=== PATIENT | female | born 2000 | race Caucasian/White ===

== ENCOUNTER → 2020-01-11 09:51 | Outpatient (CLI) | payer BC, SELFPAY ==
[2016-06-28 09:42] VITALS: BMI 25.7
[2020-01-11 12:15] LABS: HIV - WCH Non-Reactive (Nonreactive); Hepatitis B Surface Antigen Non-Reactive (Nonreactive); Hepatitis C Antibody Non-Reactive (Nonreactive)
[2020-01-14 02:11] LABS: Rapid Plasmin Reagin (RPR) NONREACTIVE (NONREACTIVE)
== END ==
PROVIDERS: PCP Pediatrics; Visit Provider Student in an Organized Health Care Education/Training Program
DX: Z11.3 Encounter for screening for infections with a predominantly sexual mode of transmission (principal)
CPT/HCPCS: 36415; 86592; 86703; 86803; 87340; 87491; 87591

== ENCOUNTER 2020-04-19 14:02 | Emergency (ER) | payer BC, MEDICAID, SELFPAY ==
[2020-04-19 14:03] VITALS: BP 116/86; PULSE 79; RESP 15; TEMP 36.7; O2SAT 99; BMI 30.5
--- NOTE | 2020-04-19 14:23 | ED.DCSUM_ITS ---
- ER Visit Summary Date of Service: 04/19/20 Chief Complaint: [Swelling to left labia majora] History of Present Illness: The patient is a 20 F [presents to the emergency department with complaint of of a swollen area to her left labia which she thought might be an ingrown hair. Patient states that she has a history of MRSA. Patient states that while in the shower last evening she had to remove the top layer of skin in the wound seemed to drain and has decreased in size since that time. Patient states that her boyfriend has had history of MRSA and she wanted to see if this was MRSA although she does have a history of MRSA. Patient denies any fevers or chills or sweats. Otherwise has no medical history. She is not diabetic.] Physical Examination: [HEENT-PERRLA, EOMI. Cranial nerves II through XII grossly intact. TMs clear. Mucous membranes moist. No adenopathy. Cardiovascular-regular rate and rhythm without murmur or ectopy Lungs-clear to auscultation, chest wall stable without crepitus or subcu emphysema Abdomen-normoactive bowel sounds, soft, nontender, no rebound or rigidity, no peritoneal signs. exam-patient does have a small papule measuring approximately 1 cm in diameter over the labia majora on the left. There is no fluctuance. No obvious drainage at this time. There is minimal surrounding erythema. Extremities-intact ?4, normal range of motion, normal pulses, atraumatic] Test Results: [None indicated] Emergency Department Course and Treatment: [Patient was started on Keflex and Bactrim] Treatment Plan: [Patient advised to follow-up with primary care physician in 3 to 5 days. Patient to return if increasing pain, redness, swelling, purulent drainage, or condition should worsen anyway. At this point I do not feel there is an indication for incision and drainage as patient states it has already drained and there is no fluctuance at this time..] Disposition: [Discharged home in stable condition] Impression: [Soft tissue abscess left labia majora-antibiotic treatment] This note was generated with [employer] software. It may contain incorrect words, spelling, and punctuation that were not noted in review of the chart prior to signing ED Disposition - Plan for ED Patient: Referrals: Mil Alfaro MD [Primary Care Provider] -
--- NOTE | 2020-04-19 14:25 | ED.DEP ---
ED Disposition - Plan for ED Patient: Instructions: ED Abscess Antibiotic Treatment Only Prescriptions: Smz/Tmp Ds [Bactrim Ds] 1 tab PO BID #14 tab Prescription Printed Cephalexin [Keflex] 500 mg PO Q6 #40 cap Prescription Printed Referrals: Mil Alfaro MD [Primary Care Provider] - 3-5 Days
[2020-04-19] MEDS: Smz/Tmp Ds Tablet 1 TABLET PO (14:40)
[2020-04-19] MEDS: Cephalexin 250 MG Capsule 500 MG PO (14:41)
== END 2020-04-19 14:47 | disposition home or self-care (01) ==
LOC: ED 14:33
PROVIDERS: Emergency Provider Emergency Medicine; PCP Pediatrics
DX: N76.4 Abscess of vulva (principal); F17.200 Nicotine dependence, unspecified, uncomplicated
CPT/HCPCS: 99283

== ENCOUNTER → 2020-04-21 16:45 | Outpatient (CLI) | payer BC, MEDICAID, SELFPAY ==
[2020-04-19 14:03] VITALS: BMI 30.5
[2020-04-26 04:08] LABS: Chlamydia By Nucleic Acid AMP Positive (Negative)
[2020-04-26 07:41] LABS: Gonococcus By Nucleic Acid AMP Negative (Negative)
== END ==
PROVIDERS: PCP Pediatrics; Visit Provider Student in an Organized Health Care Education/Training Program
DX: Z11.3 Encounter for screening for infections with a predominantly sexual mode of transmission (principal)
CPT/HCPCS: 87491; 87591

== ENCOUNTER → 2020-08-30 16:00 | Outpatient (CLI) | payer BC, MEDICAID, SELFPAY ==
[2020-09-01 20:08] LABS: Chlamydia By Nucleic Acid AMP Negative (Negative)
[2020-09-01 22:45] LABS: Gonococcus By Nucleic Acid AMP Negative (Negative)
== END ==
PROVIDERS: PCP Pediatrics; Visit Provider Student in an Organized Health Care Education/Training Program
DX: A56.00 Chlamydial infection of lower genitourinary tract, unspecified (principal); Z11.3 Encounter for screening for infections with a predominantly sexual mode of transmission
CPT/HCPCS: 87491; 87591

== ENCOUNTER → 2020-12-27 09:47 | Outpatient (CLI) | payer BC, MEDICAID, SELFPAY | PROVIDERS: PCP Pediatrics; Visit Provider Student in an Organized Health Care Education/Training Program | DX: Z11.3 Encounter for screening for infections with a predominantly sexual mode of transmission (principal) ==

== ENCOUNTER 2021-06-16 10:50 | Outpatient (CLI) | payer BC, MEDICAID, SELFPAY ==
[2021-06-16 11:47] LABS: Absolute Lymphocyte Count 3.04 X10^3/uL (0.83-4.51); Absolute Neutrophil Count 6.6 X10^3/uL (2.0-7.7); Basophil# 0.05 X10^3/uL; Basophil% 0.5 % (0-1); Eosinophil# 0.25 X10^3/uL; Eosinophils% 2.3 % (0-5); Hemoglobin 12.9 g/dL (12.0-15.0); Lymphocyte # 3.04 X10^3/ul (0.83-4.51); Lymphocyte % 28.3 % (19-41); Mean Corp Hgb Conc 33.1 g/dL (32-36); Mean Corpuscular Hgb 27.4 pg (27.0-32.0); Mean Corpuscular Volume 82.8 fL (81-99); Mean Platelet Vol. 9.5 fl (6.2-12.0); Monocyte% 6.5 % (0-10); NRBC Flagged by Analyzer 0 % (0-5); Neutrophil # 6.64 X10^3/uL (2.7-7.7); Neutrophil % 61.9 % (47-70); Platelet Count 435 K/mm3 (150-450); RBC Distribution Width CV 14.1 % (11.6-14.6); RBC Distribution Width SD 42.5 fl (35.1-43.9); Red Blood Count 4.71 M/mm3 (4.2-5.4); White Blood Count 10.7 K/mm3 (4.4-11.0)
[2021-06-16 12:17] LABS: Amphetamine Urine VISTA NEGATIVE (<1000 ng/mL); Barbiturate Urine VISTA NEGATIVE (< 200 ng/mL); Benzodiazepine Urine VISTA NEGATIVE (< 200 ng/mL); Cocaine Urine VISTA NEGATIVE (< 300 ng/mL); Ecstacy Urine VISTA NEGATIVE (< 500 ng/mL); Methadone Urine VISTA NEGATIVE (< 300 ng/mL); PCP Urine VISTA NEGATIVE (< 25 ng/mL); THC Urine VISTA POSITIVE (< 50 ng/mL); Vista UDS pH Range 7
[2021-06-16 12:49] LABS: HIV - WCH Non-Reactive (Nonreactive); Hepatitis B Surface Antigen Non-Reactive (Nonreactive); Hepatitis C Antibody Non-Reactive (Nonreactive); Rubella IgG Reactive (Nonreactive); Syphilis Antibodies Non-reactive
[2021-06-20 12:01] LABS: Chlamydia By Nucleic Acid AMP Negative (Negative)
[2021-06-20 12:26] LABS: Gonococcus By Nucleic Acid AMP Negative (Negative)
== END 2021-06-16 23:59 | disposition home or self-care (01) ==
LOC: WOBLAB 10:53
PROVIDERS: PCP Pediatrics; Visit Provider Student in an Organized Health Care Education/Training Program
DX: Z34.81 Encounter for supervision of other normal pregnancy, first trimester (principal)
CPT/HCPCS: 36415; 80307; 85025; 86703; 86762; 86780; 86803; 87086; 87088; 87340; 87491; 87591

== ENCOUNTER → 2021-07-21 | Outpatient (CLI) | payer BC, MEDICAID, SELFPAY | END | disposition home or self-care (01) | LOC: LABSPEC 09:55 | PROVIDERS: PCP Pediatrics; Visit Provider Obstetrics & Gynecology | DX: Z34.81 Encounter for supervision of other normal pregnancy, first trimester (principal) | CPT/HCPCS: 36415 ==

== ENCOUNTER 2021-08-29 09:59 | Emergency (ER) | payer BC, MEDICAID, SELFPAY ==
[2021-08-29 10:00] VITALS: BP 114/55; PULSE 97; RESP 18; TEMP 36.1; O2SAT 97; BMI 32.5
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
[2021-08-29 10:56] LABS: Mucous, Urine 0 SEEN /hpf (<or=2+); Red Blood Cells-Urine 0 SEEN /hpf (0-5)
[2021-08-29 10:59] LABS: Color, Urine Straw (Yellow); Glucose, Dipstick Normal (Normal); Ketone-Dipstick Negative (Negative); Leukocyte Esterase-Dipstick 100 /ul (Negative); Nitrite-Dipstick Negative (Negative); Occult Blood-Urine Negative /ul (Negative); Protein-Dipstick Negative (Negative); Specific Gravity, Urine 1.005 (1.002-1.030); Urine Bilirubin Dipstick Negative (Negative); Urine Clarity Clear (Clear); Urine Urobilinogen Normal (Normal)
[2021-08-29 11:05] LABS: Bacteria 1+ /hpf (None Seen); Squamous Epithelial Cells - UA 0-5 SEEN /hpf (5-10); White Blood Cells 10-25 SEEN /hpf (0-5)
--- NOTE | 2021-08-29 11:23 | EKG12_ITS ---
Test Reason : CP Blood Pressure : / mmHG Vent. Rate : 084 BPM Atrial Rate : 084 BPM P-R Int : 140 ms QRS Dur : 084 ms QT Int : 370 ms P-R-T Axes : 049 075 014 degrees QTc Int : 437 ms Normal sinus rhythm Normal ECG Confirmed by TORSTEN BRADLEY, WILMA ([id number]), movie editor HEBER WASHINGTON ([id number]) on 08/31/2021 10:17:35 AM Referred By: HALEY Confirmed By:WILMA SARMIENTO MD
== END 2021-08-29 11:25 | disposition home or self-care (01) ==
PROVIDERS: Emergency Provider Emergency Medicine; Visit Provider Emergency Medicine
DX: O26.892 Other specified pregnancy related conditions, second trimester (principal); F17.210 Nicotine dependence, cigarettes, uncomplicated; O99.332 Smoking (tobacco) complicating pregnancy, second trimester; R07.9 Chest pain, unspecified; R10.9 Unspecified abdominal pain; Z3A.18 18 weeks gestation of pregnancy
CPT/HCPCS: 81001; 87086; 87088; 93005; 99282

== ENCOUNTER 2021-10-24 15:55 | Outpatient (CLI) | payer BC, MEDICAID, SELFPAY ==
[2021-10-24 16:04] VITALS: BP 155/62; PULSE 94; TEMP 36.4; O2SAT 96
[2021-10-24 16:09] VITALS: PULSE 96; O2SAT 98
[2021-10-24 16:10] VITALS: BMI 35.8
[2021-10-24 16:13] VITALS: BP 136/60; PULSE 85
[2021-10-24] MEDS: Acetaminophen 500 MG Tablet 1000 MG PO (16:51)
[2021-10-24 16:58] VITALS: TEMP 36.7
[2021-10-24 16:59] VITALS: BP 127/58; PULSE 78
[2021-10-24 17:04] LABS: Absolute Lymphocyte Count 2.54 X10^3/uL (0.83-4.51); Absolute Neutrophil Count 9.4 X10^3/uL (2.0-7.7); Basophil# 0.04 X10^3/uL; Basophil% 0.3 % (0-1); Eosinophils% 0.8 % (0-5); Hematocrit 32.7 % (37-47); Hemoglobin 10.6 g/dL (12.0-15.0); Lymphocyte # 2.54 X10^3/ul (0.83-4.51); Lymphocyte % 19.3 % (19-41); Mean Corp Hgb Conc 32.4 g/dL (32-36); Mean Corpuscular Hgb 28.4 pg (27.0-32.0); Mean Corpuscular Volume 87.7 fL (81-99); Mean Platelet Vol. 9.6 fl (6.2-12.0); Monocyte# 0.95 X10^3/uL; Monocyte% 7.2 % (0-10); NRBC Flagged by Analyzer 0 % (0-5); Neutrophil # 9.42 X10^3/uL (2.7-7.7); Neutrophil % 71.6 % (47-70); Platelet Count 368 K/mm3 (150-450); RBC Distribution Width CV 13.2 % (11.6-14.6); RBC Distribution Width SD 41.9 fl (35.1-43.9); Red Blood Count 3.73 M/mm3 (4.2-5.4); White Blood Count 13.2 K/mm3 (4.4-11.0)
[2021-10-24 17:32] LABS: ROM Internal Control Test YES-OK TO RESULT pt. (Internal QC); ROM Patient Test Negative (Negative)
[2021-10-24 17:47] LABS: ALB/GLOB Ratio 0.6 RATIO (0.9-2.4); AST(SGOT) 14 U/L (15-37); Alanine Aminotransfer ALT/SGPT 14 U/L (13-56); Albumin, Serum 2.5 g/dL (3.2-5.0); Alkaline Phosphatase 95 U/L (45-117); Anion Gap 4 (5-15); BUN 9 mg/dL (7-18); BUN/Creat Ratio 13.5 RATIO (10-20); Calcium,Total 8.9 mg/dL (8.5-10.1); Chloride 107 mmol/L (98-107); Creatinine, Serum 0.67 mg/dL (0.55-1.02); EST Glomerular Filtration Rate 118 mL/min (>60); Est Glom Filt Rate - Afr Amer 142 mL/min (>60); Estimated Creatinine Clearance 109.87 ml/min; Globulin 4.2 g/dL (2.2-4.2); Glucose 80 mg/dL (74-106); Protein, Total 6.7 g/dL (6.4-8.2); Sodium Level 137 mmol/L (136-145)
--- NOTE | 2021-10-24 17:59 | OB.TRI.HP_ITS ---
Maternal Data Information Final OSBALDO: 01/30[birth year]22 [facility] Home Medications vit #[id number] 10/24/21 [History Last Taken 10/12/21 10:00] Allergy/AdvReac Type Severity Reaction Status Date / Time bee venom protein (honey bee) Allergy Hives Verified 10/24/21 16:11 Social History (Updated 08/29/21 @ 10:[address] Willie Morgan, DO) Smoking Status: Current every day smoker tobacco type: cigarettes substance use type: does not use
--- NOTE | 2021-10-24 18:02 | PN.OBGYN_ITS ---
Subjective Subjective 21-year-old G1 at 26 weeks. Presenting with leaking for 1 week. Reports increased vaginal discharge weights and clear. No bleeding. Reports movement. Denies vaginal itching or burning. Denies urinary symptoms. Reports tension headaches that have been on and off prior to and slightly worse during . Occasionally has fuzzy vision with these headaches. This is occurred prior to . No scotomata. No right upper quadrant pain. No diarrhea or constipation, nausea or vomiting, fevers or chills. OSBALDO 01/30/22 complicated by: Chlamydia, anxiety depression, migraines. Objective Data Objective Data Vital Signs: Vital Signs Temp Pulse BP Pulse Ox 98.0 F 78 127/58 H 98 10/24/21 16:58 10/24/21 16:59 10/24/21 16:59 10/24/21 16:09 Weight: 91.7 kg Body Mass Index (BMI) 35.8 Lab / Micro Data Attestation: I reviewed the patient's lab results. Result Diagrams: 10/24/21 16:40 10/24/21 16:40 Labs: Laboratory Results - last 24 hr 10/24/21 16:40: WBC 13.2 H, RBC 3.73 L, Hgb 10.6 L, Hct 32.7 L, MCV 87.7, MCH 28.4, MCHC 32.4, RDW Std Deviation 41.9, RDW Coeff of Reese 13.2, Plt Count 368, MPV 9.6, Immature Gran % (Auto) 0.800, Neut % (Auto) 71.6 H, Lymph % (Auto) 19.3, [place] % (Auto) 7.2, Eos % (Auto) 0.8, Baso % (Auto) 0.3, Absolute Neuts (auto) 9.4 H, Absolute Lymphs (auto) 2.54, Nucleated RBC % 0 10/24/21 16:40: Sodium 137, Potassium 4.0, Chloride 107, Carbon Dioxide 26.0, An ion Gap 4 L, BUN 9, Creatinine 0.67, Estim Creat Clear Calc 109.87, Est GFR (MDRD) Af Amer 142, Est GFR (MDRD) Non-Af 118, BUN/Creatinine Ratio 13.5, Glucose 80, Calcium 8.9, Total Bilirubin 0.20, AST 14 L, ALT 14, Alkaline Phosphatase 95, Total Protein 6.7, Albumin 2.5 L, Globulin 4.2, Albumin/Globulin Ratio 0.6 L 10/24/21 : Vag Amniotic Fld Detect Negative Physical Exam Const alert, oriented x3 and no apparent distress HEENT normocephalic Resp normal respiratory effort Cardio regular rate GI soft to palpation and non-tender GI Narrative: No right upper quadrant pain Inspection: gravid Narrative: Sterile speculum exam: Minimal discharge. No pooling. NST FHR Rate Baby A Baseline: 135 Variability:: Moderate Accelerations:: 10 x 10 Decelerations:: None NST Reactive:: Yes Assessment & Plan (1) : PLAN: Plan 29-year-old female at 26 weeks with leaking. No evidence of rupture of membranes at this time. Ferning pending. Bedside ultrasound with 11 cm of fluid. Baby breech. ROM negative. Headache appears to be tension in origin. Discussed etiologies. Discussed warning signs of PE. To call or come for visual disturbances and headache that is unremitting with Tylenol. Encourage stretching and massage for management of tension headache, Tylenol as needed. CBC and CMP within normal limits. Blood pressure stable. Patient has appointment on 823. We will follow-up then. Urine culture also sent. Discharge home with precautions.
== END 2021-10-24 18:37 | disposition home or self-care (01) ==
LOC: WPOUT 16:00 → WP 16:00
PROVIDERS: Visit Provider Student in an Organized Health Care Education/Training Program
DX: O98.312 Other infections with a predominantly sexual mode of transmission complicating pregnancy, second trimester (principal); O99.352 Diseases of the nervous system complicating pregnancy, second trimester; G43.909 Migraine, unspecified, not intractable, without status migrainosus; F17.210 Nicotine dependence, cigarettes, uncomplicated; Z3A.26 26 weeks gestation of pregnancy; A74.9 Chlamydial infection, unspecified; O99.332 Smoking (tobacco) complicating pregnancy, second trimester
CPT/HCPCS: 36415; 59025; 59050; 76815; 80053; 84112; 85025; 87086; 99218; G0378

== ENCOUNTER → 2021-11-14 | Outpatient (CLI) | payer BC, MEDICAID, SELFPAY ==
[2021-11-14 09:55] LABS: Absolute Lymphocyte Count 2.91 X10^3/uL (0.83-4.51); Absolute Neutrophil Count 7.2 X10^3/uL (2.0-7.7); Basophil# 0.04 X10^3/uL; Basophil% 0.4 % (0-1); Eosinophil# 0.13 X10^3/uL; Eosinophils% 1.2 % (0-5); Hematocrit 30.4 % (37-47); Hemoglobin 10.1 g/dL (12.0-15.0); Lymphocyte # 2.91 X10^3/ul (0.83-4.51); Lymphocyte % 26.4 % (19-41); Mean Corp Hgb Conc 33.2 g/dL (32-36); Mean Corpuscular Hgb 28.6 pg (27.0-32.0); Mean Corpuscular Volume 86.1 fL (81-99); Mean Platelet Vol. 9.7 fl (6.2-12.0); Monocyte# 0.68 X10^3/uL; Monocyte% 6.2 % (0-10); NRBC Flagged by Analyzer 0 % (0-5); Neutrophil # 7.16 X10^3/uL (2.7-7.7); Neutrophil % 64.9 % (47-70); Platelet Count 368 K/mm3 (150-450); RBC Distribution Width CV 13.2 % (11.6-14.6); RBC Distribution Width SD 40.8 fl (35.1-43.9); Red Blood Count 3.53 M/mm3 (4.2-5.4)
[2021-11-14 10:38] LABS: Glucose Challenge Gest 1H 50g 179 mg/dL (70-140)
== END | disposition home or self-care (01) ==
LOC: WOBLAB 09:24
PROVIDERS: Visit Provider Obstetrics & Gynecology
DX: Z34.83 Encounter for supervision of other normal pregnancy, third trimester (principal)
CPT/HCPCS: 36415; 82950; 85025

== ENCOUNTER → 2021-11-20 | Outpatient (CLI) | payer BC, MEDICAID, SELFPAY ==
[2021-11-20 10:54] LABS: Glucose GTT-Gestation. Fasting 80 mg/dL (<105)
[2021-11-20 12:04] LABS: Glucose GTT-Gestational 1 Hr 144 mg/dL (<190)
[2021-11-20 13:20] LABS: Glucose GTT-Gestational 2 Hr 114 mg/dL (<165)
[2021-11-20 16:23] LABS: Glucose GTT-Gestational 3 Hr 83 L (<145)
== END | disposition home or self-care (01) ==
LOC: WOBLAB 10:14
PROVIDERS: Visit Provider Obstetrics & Gynecology
DX: Z34.83 Encounter for supervision of other normal pregnancy, third trimester (principal)
CPT/HCPCS: 36415; 82951; 82952

== ENCOUNTER → 2022-01-05 | Outpatient (CLI) | payer BC, MEDICAID, SELFPAY ==
[2022-01-08 21:07] LABS: Chlamydia By Nucleic Acid AMP Negative (Negative)
[2022-01-09 17:52] LABS: Gonococcus By Nucleic Acid AMP Negative (Negative)
== END | disposition home or self-care (01) ==
LOC: LABSPEC 13:53
PROVIDERS: Visit Provider Obstetrics & Gynecology
DX: Z36.85 Encounter for antenatal screening for Streptococcus B (principal)
CPT/HCPCS: 87081; 87491; 87591

== ENCOUNTER 2022-02-05 07:13 | Inpatient (IN) | payer BC, MEDICAID, SELFPAY ==
[2022-02-05] VITALS (62 sets, daily range): BP systolic 75–149; BP diastolic 44–89; PULSE 58–88; TEMP 36.2–36.9; O2SAT 90–99; BMI 40.5
[2022-02-05] MEDS: Lactated Ringers 1,000 ML 50 ML IV ×2 (08:15→20:16)
[2022-02-05] MEDS: miSOPROStol 25 MCG TABLET VAGINAL ×2 (08:24→12:26)
[2022-02-05 08:49] LABS: Absolute Lymphocyte Count 2.83 X10^3/uL (0.83-4.51); Absolute Neutrophil Count 7.6 X10^3/uL (2.0-7.7); Basophil# 0.03 X10^3/uL; Basophil% 0.3 % (0-1); Eosinophil# 0.08 X10^3/uL; Eosinophils% 0.7 % (0-5); Hematocrit 31.8 % (37-47); Hemoglobin 10.1 g/dL (12.0-15.0); Lymphocyte # 2.83 X10^3/ul (0.83-4.51); Lymphocyte % 24.7 % (19-41); Mean Corp Hgb Conc 31.8 g/dL (32-36); Mean Corpuscular Hgb 25.8 pg (27.0-32.0); Mean Corpuscular Volume 81.3 fL (81-99); Mean Platelet Vol. 10.6 fl (6.2-12.0); Monocyte# 0.85 X10^3/uL; Monocyte% 7.4 % (0-10); NRBC Flagged by Analyzer 0 % (0-5); Neutrophil # 7.61 X10^3/uL (2.7-7.7); Neutrophil % 66.3 % (47-70); Platelet Count 379 K/mm3 (150-450); RBC Distribution Width CV 14.6 % (11.6-14.6); RBC Distribution Width SD 42.5 fl (35.1-43.9); Red Blood Count 3.91 M/mm3 (4.2-5.4); White Blood Count 11.5 K/mm3 (4.4-11.0)
[2022-02-05 09:02] LABS: Amphetamine Urine VISTA NEGATIVE (<1000 ng/mL); Barbiturate Urine VISTA NEGATIVE (< 200 ng/mL); Benzodiazepine Urine VISTA NEGATIVE (< 200 ng/mL); Cocaine Urine VISTA NEGATIVE (< 300 ng/mL); Ecstacy Urine VISTA NEGATIVE (< 500 ng/mL); Methadone Urine VISTA NEGATIVE (< 300 ng/mL); PCP Urine VISTA NEGATIVE (< 25 ng/mL); THC Urine VISTA NEGATIVE (< 50 ng/mL); Vista UDS pH Range 6
--- NOTE | 2022-02-05 09:22 | PCM.HP.BLA ---
History and Physical Date of Admission: 02/05/22 Chief complaint: Induction of labor at term History present illness: 22-year-old at 40 weeks and 6 days with a OSBALDO 01/30/2022 arrives for induction of labor at term. Denies headache, visual change, chest pain, shortness of breath, nausea vomit, right upper quadrant pain. Patient states good movement. Obstetric history: G1: Current Past medical history: Anxiety Medications: Citalopram Past surgical history: None Allergies: Bees Family history: Denies history DVT or PE Social history: Half pack per day smoker, denies alcohol or drug use Review of systems: Besides above pertinent positives a full review of systems was performed and found to be negative Physical exam: Vitals: Blood pressure 139/89 pulse 66 General: Normal-appearing no acute distress HEENT: Normocephalic/atraumatic no cervical lymphadenopathy Cardiac/respiratory: No use accessory muscles, nonlabored breathing Abdomen: Soft, nontender, gravid Extremities: No peripheral edema normal peripheral pulses Psych: Normal affect normal demeanor nonpressured speech Labs: White blood cell count 11.5 hemoglobin 10.1 hematocrit 31.8% platelets 379. Assessment plan: 22-year-old G1, P0 at 40 weeks and 6 days for induction of labor at term Admit labor and delivery CEFM GBS negative Routine orders Anesthesia to see
[2022-02-05] MEDS: 0.9% Saline Lock 10 ML Syringe IV (09:30)
--- NOTE | 2022-02-05 17:45 | PN.OBGYN_ITS ---
Subjective Subjective Mild crampiness with contractions otherwise no complaints Objective Data Objective Data Vital Signs: Vital Signs Temp Pulse BP Pulse Ox 97.5 F L 68 114/61 97 02/05/22 17:05 02/05/22 17:05 02/05/22 17:05 02/05/22 17:05 Weight: 229 lb Body Mass Index (BMI) 40.5 Intake & Output: Intake and Output for Last 24 Hours 02/03/22 02/04/22 02/05/22 23:59 23:59 23:59 Intake Total 62.5 / 62.5 Balance 62.5 / 62.5 Lab / Micro Data Result Diagrams: 02/05/22 08:15 Labs: Laboratory Results - last 24 hr 02/05/22 07:30: Urine Opiates Screen NEGATIVE, Urine Methadone Screen NEGATIVE, Ur Barbiturates Screen NEGATIVE, Ur Phencyclidine Scrn NEGATIVE, Ur Amphetamines Screen NEGATIVE, MDMA (Ecstasy) Screen NEGATIVE, U Benzodiazepines Scrn NEGATIVE, Urine Cocaine Screen NEGATIVE, U Cannabinoids Screen NEGATIVE, Ur Drug Screen Comment 02/05/22 08:15: WBC 11.5 H, RBC 3.91 L, Hgb 10.1 L, Hct 31.8 L, MCV 81.3, MCH 25.8 L, MCHC 31.8 L, RDW Std Deviation 42.5, RDW Coeff of Reese 14.6, Plt Count 379, MPV 10.6, Immature Gran % (Auto) 0.600, Neut % (Auto) 66.3, Lymph % (Auto) 24.7, [place] % (Auto) 7.4, Eos % (Auto) 0.7, Baso % (Auto) 0.3, Absolute Neuts (auto) 7.6, Absolute Lymphs (auto) 2.83, Nucleated RBC % 0 02/05/22 08:15: Blood Type O POSITIVE, Antibody Screen NEGATIVE Physical Exam Const alert, oriented x3, no apparent distress, average body habitus, healthy appearing and well nourished HEENT normocephalic and moist oral mucous membranes Eyes PERRL Resp normal respiratory effort, no retractions and no use of accessory muscles GI GI Narrative: Soft, nontender, gravid Narrative: Cervical exam: 2/60/-3. AROM clear fluid Extremity normal to inspection, full ROM and no clubbing, cyanosis or edema Neuro moves all extremities and no focal motor deficits Psych mental status grossly normal, affect normal, speech normal and activity/motor behavior normal Assessment & Plan (1) : PLAN: Patient seen and examined. AROM clear fluid. Continue Cytotec induction
[2022-02-05] MEDS: Oxytocin 15 Units/NS 250ml 15 UNITS/250 ML IV.SOLN 2 UNITS IV (20:17)
[2022-02-05] MEDS: fentaNYL 100 MCG/2 ML Ampul IV (20:22)
[2022-02-05] MEDS: LACTATED RINGERS 500 ML 999 ML IV ×3 (21:31→23:57)
[2022-02-05] MEDS: fentaNYL-bupivacaine (epidural) 100 ML BAG EPIDURAL (22:15)
[2022-02-06] VITALS (41 sets, daily range): BP systolic 96–138; BP diastolic 41–101; PULSE 58–123; RESP 14–18; TEMP 36.1–36.8; O2SAT 95–100
[2022-02-06] MEDS: fentaNYL-bupivacaine (epidural) 100 ML BAG EPIDURAL (02:54)
[2022-02-06] MEDS: Lactated Ringers 1,000 ML 200 ML IV (03:28)
[2022-02-06] MEDS: LACTATED RINGERS 500 ML 999 ML IV (03:28)
[2022-02-06] MEDS: Sodium Citrate/Citric Acid 30 ML UDC PO (05:26)
[2022-02-06] MEDS: Acetaminophen 500 MG Tablet PO (05:26)
--- NOTE | 2022-02-06 05:29 | PCM.PN.OB ---
Subjective Subjective Patient seen and examined. Objective Data Objective Data Vital Signs: Vital Signs Temp Pulse Resp BP Pulse Ox O2 Del Method 98.3 F 75 18 97/49 L 96 Room Air 02/06/22 05:06 02/06/22 05:08 02/06/22 05:06 02/06/22 05:06 02/06/22 05:08 02/06/22 05:06 Oxygen Delivery Method Room Air Weight: 103.873 kg Body Mass Index (BMI) 40.5 Intake & Output: Intake and Output for Last 24 Hours 02/04/22 02/05/22 02/06/22 23:59 23:59 23:59 Intake Total 1126.87 / 1126.87 1463.83 / 1463.83 Output Total 1000 / 1000 Balance 1126.87 / 1126.87 463.83 / 463.83 Lab / Micro Data Attestation: I reviewed the patient's lab results. Result Diagrams: 02/05/22 08:15 Labs: Laboratory Results - last 24 hr 02/05/22 07:30: Urine Opiates Screen NEGATIVE, Urine Methadone Screen NEGATIVE, Ur Barbiturates Screen NEGATIVE, Ur Phencyclidine Scrn NEGATIVE, Ur Amphetamines Screen NEGATIVE, MDMA (Ecstasy) Screen NEGATIVE, U Benzodiazepines Scrn NEGATIVE, Urine Cocaine Screen NEGATIVE, U Cannabinoids Screen NEGATIVE, Ur Drug Screen Comment 02/05/22 08:15: WBC 11.5 H, RBC 3.91 L, Hgb 10.1 L, Hct 31.8 L, MCV 81.3, MCH 25.8 L, MCHC 31.8 L, RDW Std Deviation 42.5, RDW Coeff of Reese 14.6, Plt Count 379, MPV 10.6, Immature Gran % (Auto) 0.600, Neut % (Auto) 66.3, Lymph % (Auto) 24.7, [place] % (Auto) 7.4, Eos % (Auto) 0.7, Baso % (Auto) 0.3, Absolute Neuts (auto) 7.6, Absolute Lymphs (auto) 2.83, Nucleated RBC % 0 02/05/22 08:15: Blood Type O POSITIVE, Antibody Screen NEGATIVE Physical Exam Const alert and oriented x3 General Appearance: comfortable HEENT normocephalic Resp normal respiratory effort Cardio regular rate GI soft to palpation, non-tender and non-distended Inspection: gravid Narrative: CE 5 cm unchanged since prior exam per RN Extremity Extremity Narrative: Minimal pedal edema Neuro moves all extremities, no focal motor deficits and no sensory deficits noted Psych mental status grossly normal and affect normal NST FHR Rate Baby A Baseline: 145 Variability:: Moderate Accelerations:: 15 x 15 Decelerations:: Late and Variable FHR Category:: Category II Uterine Activity:: q7 Assessment & Plan (1) : PLAN: Plan 22-year-old G1 at 41/0 weeks admitted for induction of labor at term. Patient patient had progressed throughout labor to 5 cm. Patient had episodes of prolonged heart rate decelerations at around 3:30 AM which had followed intermittent late decelerations. Patient had Pitocin turned off, position change, oxygen on. Return of moderate variability with accelerations and no decelerations occurred around 4:20 AM however after this time heart rate monitoring returned to category 2 tracing with variable and late decelerations. Patient was rechecked and found to be 5 cm, which was unchanged. Due to category 2 tracing remote from delivery, decision for primary section was made. All risk, benefits, alternatives were discussed with the patient. Risk include but are not limited to: Risk of bleeding to the point transfusion, infection, injury to surrounding tissue including bowel/bladder potentially requiring prolonged Knott catheter use, VTE, ICU admission. Patient aware and consented. All questions answered. Proceed in an urgent but nonemergent fashion.
[2022-02-06] MEDS: Cefazolin 2 GM in 0.9% Normal Saline 100 ML IV (05:48)
--- NOTE | 2022-02-06 06:42 | EX.PCM.OBRPT ---
Details Operative Information Date of Procedure: 02/06/22 Pre-Operative Diagnosis: Hamilton intrauterine , nonreassuring heart tones Post-Operative Diagnosis: Hamilton intrauterine , nonreassuring heart tones Indications Narrative: 22-year-old G1, P0 41/0 weeks with persistent category 2 remote from delivery, plan for primary section for 9 reassuring heart tones. All risk, benefits, alternatives discussed with patient. Risk include but not limited to: Risk of insulin transfusion, infection, injury to surrounding tissue including bowel/bladder requiring prolonged Knott catheter use, VTE, ICU admission. Patient aware and consented. Classification: GELY Procedure Type: low transverse Type of Anesthesia: Epidural Antibiotic Given: Ancef 2 grams IV x1 and Zithromax 500 mg/5 mL X1 Estimated Blood Loss: 800 cc Fluids Replaced: 1000 cc Findings Description of Procedure: Patient taken to the operating room epidural anesthesia dose. Patient placed in the supine position with the left lateral tilt. Pfannenstiel skin incision made with scalpel and carried down through subcutaneous tissue. Fascia nicked on either side of midline and extended bilaterally using Quintero scissors. Lazara clamps grasped superior fascial edge which was tented up and underlying rectus muscles were dissected off bluntly and sharply at midline using Quintero scissors. Lazara clamps moved to inferior fascial edge which was tented up and underlying rectus muscles dissected off in a similar fashion. Rectus muscle superiorly with hemostats. Peritoneum entered bluntly and extended bluntly. Bladder blade placed. Vesicouterine peritoneum identified and bladder flap created using Metzenbaum scissors. Low transverse uterine incision made with scalpel and extended bluntly. Hand placed into the uterine cavity and head elevated to the level of the hysterotomy. Nuchal cord x1, loose, reduced. Head delivered followed by body. Cord clamped and cut. Baby to nursing. Manual extraction of placenta. Uterus exteriorized and cleared of all clots. Bladder blade replaced. Hysterotomy closed with a running stitch followed by second vertical imbricating stitch. Hemostatic. Uterus replaced into the abdominal cavity. Peritoneum identified and closed in a running fashion. Wide malleable utilized to ensure that bowel and omentum was held away from the peritoneal closure. Fascia closed with running stitch. Subcuticular tissue closed with suture. Skin closed with a running subcuticular stitch. At the end of the procedure all needle, lap, sponge counts were correct. Urine output: 100 cc clear urine. Infant A Gender: Female (1 minute): 7 (5 minute): 8 Complications Complications: None
[2022-02-06] MEDS: Oxytocin 15 Units/NS 250ml 15 UNITS/250 ML IV.SOLN 83 UNITS IV (07:40)
[2022-02-06] MEDS: Ketorolac 30 MG/ML Syringe IV ×3 (07:44→20:28)
[2022-02-06] MEDS: Methylergonovine 0.2 MG/ML Ampul IM (08:28)
[2022-02-06] MEDS: Ondansetron 4 MG/2 ML Vial IV (09:48)
[2022-02-06] MEDS: Lactated Ringers 1,000 ML 100 ML IV (10:31)
[2022-02-06] MEDS: proCHLORPERazine 10 MG/2 ML Vial IV (11:35)
[2022-02-06] MEDS: Acetaminophen 500 MG Tablet 1000 MG PO ×2 (14:20→20:27)
[2022-02-06] MEDS: Senna/Docusate Sodium 1 Tablet PO (14:21)
[2022-02-06] MEDS: Citalopram 20 MG Tablet PO (14:21)
[2022-02-06] MEDS: Enoxaparin 40 MG/0.4 ML Syringe SC (18:37)
[2022-02-06] MEDS: 0.9% Saline Lock 10 ML Syringe IV (20:28)
[2022-02-07] MEDS: Ketorolac 30 MG/ML Syringe IV (02:40)
[2022-02-07] MEDS: Acetaminophen 500 MG Tablet 1000 MG PO ×3 (02:40→15:00)
[2022-02-07] MEDS: 0.9% Saline Lock 10 ML Syringe IV (02:41)
[2022-02-07 04:25] VITALS: BP 110/59; PULSE 85; RESP 15; TEMP 36.2; O2SAT 98
[2022-02-07 05:30] LABS: Hematocrit 26.2 % (37-47); Hemoglobin 8.3 g/dL (12.0-15.0); Mean Corp Hgb Conc 31.7 g/dL (32-36); Mean Corpuscular Hgb 26.3 pg (27.0-32.0); Mean Corpuscular Volume 83.2 fL (81-99); Platelet Count 350 K/mm3 (150-450); RBC Distribution Width SD 45.2 fl (35.1-43.9); Red Blood Count 3.15 M/mm3 (4.2-5.4); White Blood Count 14.5 K/mm3 (4.4-11.0)
--- NOTE | 2022-02-07 07:09 | PCM.DC.BLA ---
Discharge Summary Date of Admission: 02/05/22 Date of Discharge: 02/07/22 Summary: Patient arrived on 02/05/2022 for induction of labor at term. Subsequently with nonreassuring heart tones and perform primary section for nonreassuring heart tones on 02/06/2022. Routine postoperative recovery. Discharge home on 02/07/2022 Meaningful Use Info Meaningful Use Diagnoses (Choose all that apply): None applicable Discharge Plan Admission Admit Date/Time: 02/05/22 07:13 Primary Reason for Your Visit: Induction of labor Attending Provider: Tiffany Ceballos Primary Care Provider: Gabriella Morales Primary Instructions Additional Instructions / Restrictions: Regular diet. Okay to shower. No tub baths for 2 weeks. No intercourse for 4 to 6 weeks. No lifting over 25 pounds for 2 to 3 weeks. Call if fevers, chills, chest pain, shortness of breath. Follow-up 2 weeks postoperatively Discharge Orders/Prescriptions Prescriptions: New oxycodone 5 mg Tablet 5 mg PO Q6H PRN PRN (Reason: Pain Score 7-10) 4 Days Qty: 16 0RF Continued citalopram 20 mg Tablet 20 mg PO DAILY Referrals / Follow Up: Care Physician,Gabriella Primary [Primary Care Provider] - Disposition Disposition (needs filled in before D/C Order can be placed): Home, Self Care
--- NOTE | 2022-02-07 07:10 | PCM.PN.OB ---
Subjective Subjective No overnight complaints. Pain well controlled Objective Data Objective Data Vital Signs: Vital Signs Temp Pulse Resp BP Pulse Ox O2 Del Method 97.2 F L 85 15 110/59 L 98 Room Air 02/07/22 04:25 02/07/22 04:25 02/07/22 04:25 02/07/22 04:25 02/07/22 04:25 02/07/22 04:25 Oxygen Delivery Method Room Air Weight: 229 lb Body Mass Index (BMI) 40.5 Intake & Output: Intake and Output for Last 24 Hours 02/05/22 02/06/22 02/07/22 23:59 23:59 23:59 Intake Total 1126.87 / 1126.87 4992.29 / 4992.29 Output Total 2800 / 2800 Balance 1126.87 / 1126.87 2192.29 / 2192.29 Lab / Micro Data Result Diagrams: 02/07/22 05:20 Labs: Laboratory Results - last 24 hr 02/07/22 05:20: WBC 14.5 H, RBC 3.15 L, Hgb 8.3 L, Hct 26.2 L, MCV 83.2, MCH 26.3 L, MCHC 31.7 L, RDW Std Deviation 45.2 H, RDW Coeff of Reese 15.0 H, Plt Count 350, MPV 10.0 Physical Exam Const alert, oriented x3, no apparent distress, average body habitus, healthy appearing and well nourished HEENT normocephalic and moist oral mucous membranes Eyes PERRL Resp normal respiratory effort, no retractions and no use of accessory muscles GI GI Narrative: Soft, nontender, bandage with left portion now not adhesed otherwise majority of bandage clean dry and intact Extremity normal to inspection, full ROM and no clubbing, cyanosis or edema Neuro moves all extremities and no focal motor deficits Psych mental status grossly normal, affect normal, speech normal and activity/motor behavior normal Assessment & Plan (1) delivery delivered: PLAN: Postop day 1 status post primary section for nonreassuring heart tones. Breast-feeding. Pain well controlled. Portion of bandage now not adhesed, given patient instructions in case bandage naturally comes off. Okay to discharge home today if okay with oil distributor tender
--- NOTE | 2022-02-07 07:45 | NURSING ---
Pt first void around 2300 but did not use the hat to void in. Since then has voided 3-4 times without voiding in the hat but feels like voiding is fine and feels like she is emptying her bladder fully.
[2022-02-07 09:00] VITALS: BP 122/71; PULSE 87; RESP 15; TEMP 36.2; O2SAT 95
[2022-02-07] MEDS: Ibuprofen 600 MG Tablet PO ×2 (09:00→15:00)
--- NOTE | 2022-02-07 09:43 | NURSING ---
left side of mepilex dressing puffing up a little bit but still intact. Observation passed on in report by Ranjan Wilkins RN to this RN that Dr. Nathanael Ceballos was notified and is not concerned about changing dressing at this time
[2022-02-07] MEDS: Senna/Docusate Sodium 1 Tablet PO (10:02)
[2022-02-07] MEDS: Citalopram 20 MG Tablet PO (10:02)
[2022-02-07] MEDS: Enoxaparin 40 MG/0.4 ML Syringe SC (10:03)
[2022-02-07 14:57] VITALS: BP 129/78; PULSE 83; RESP 16; TEMP 36.7; O2SAT 97
--- NOTE | 2022-02-07 15:58 | NURSING ---
Reviewed and agreed with Praneeth GUTIERREZ charting.
== END 2022-02-07 15:45 | disposition home or self-care (01) | DRG 788 ==
PROVIDERS: Obstetrics & Gynecology; Admitting Provider Student in an Organized Health Care Education/Training Program; Visit Provider Student in an Organized Health Care Education/Training Program
DX: O48.0 Post-term pregnancy (principal); F41.9 Anxiety disorder, unspecified; O99.344 Other mental disorders complicating childbirth; O69.81X0 Labor and delivery complicated by cord around neck, without compression, not applicable or unspecified; O76 Abnormality in fetal heart rate and rhythm complicating labor and delivery; Z3A.41 41 weeks gestation of pregnancy; Z37.0 Single live birth; Z87.891 Personal history of nicotine dependence
CPT/HCPCS: 59025; 59050; 76815; 80307; 85025; 85027; 86850; 86900; 86901; 99218; 99251; 99406; J7120; A4216; G0378; G0463; J2405

== ENCOUNTER 2022-12-11 16:09 | Emergency (ER) | payer OTHER, MEDICAID, SELFPAY ==
[2022-12-11] VITALS (7 sets, daily range): BP systolic 108–125; BP diastolic 39–78; PULSE 80–96; RESP 18; TEMP 36–37.8; O2SAT 97–100; BMI 31.4
--- NOTE | 2022-12-11 16:46 | EX.ED.DYSGE1 ---
HPI History of Present Illness Chief Complaint: Headache Informant: patient Narrative Narrative: Presents with dehydration and headache. Patient states that about a week ago she started coughing. She was bringing up some green sputum. She was seen by urgent care. She was placed on Z-Miguel. She is still coughing but not bringing up the sputum. She is also had runny nose. Not a sore throat. But she also now has myalgias. No fevers. Today she has developed a bit of a headache. She states it is tight all around. She has a very dry mouth. She states she has not been drinking as much fluids all week. She has not drank anything today and she feels nauseated today but no vomiting or diarrhea. 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 She states a lot of the children have been going home due to illness but she does not have any specific diagnosis of what they have. No reported exposure to meningitis. No known COVID. No known RSV. PFSH PFSH Medical History Anxiety Chlamydia Depression MRSA infection Smoker Home Medications citalopram 20 mg tablet 20 mg PO DAILY anxiety 02/05/22 [History Last Taken 02/05/22 06:30] oxycodone 5 mg tablet 5 mg PO Q6H PRN PRN Pain Score 7-10 4 days #16 tabs 02/07/22 [Rx Last Taken Unknown] ondansetron 4 mg disintegrating tablet 4 mg PO Q8H PRN PRN Nausea #10 tabs 12/11/22 [Rx Last Taken Unknown] Allergy/AdvReac Type Severity Reaction Status Date / Time bee venom protein (honey bee) Allergy Hives Verified 12/11/22 16:09 Surgical History [place] teeth removed Social History Smoking Status: Light Smoker (<10/day) substance use type: does not use ROS ROS ED ROS Narrative A complete review of systems was performed and is negative except as documented in the history of present illness. Some specific details below. Constitutional: No recent fevers or chills. Have malaise and myalgias. EYE: No discharge, visual complaints, or pain. ENT: Sore throat. She had her ears popping initially but that stopped. She has had some clear rhinorrhea. No facial pain. CV: Palpitations or chest pain. Respiratory: History of cough. Originally green sputum but that stopped. GI: No abdominal pain. Has had nausea and decreased p.o. intake but no actual vomiting. No diarrhea. She has not been drinking much fluids and has drank no fluids at all today due to the nausea. : No frequency dysuria or hematuria. Musculoskeletal: No recent trauma. No swelling but she does have some diffuse myalgias. Skin: No rash. No skin color changes or sore areas. Neuro: No weakness or numbness. Endocrine: No polyuria or polydipsia. EXAM Physical Exam Narrative Exam Narrative: CONSTITUTIONAL: Patient is nontoxic in appearance. The patient looks comfortable. Work of breathing looks normal. HEENT: No notable trauma. Mucous membranes are moderately dry. No sinus tenderness. Pharynx is clear. No erythema or exudate. External auditory canals and tympanic membranes are clear. She does have some mild clear rhinorrhea. No bleeding. EYES: No conjunctival injection. No proptosis. Pupils are meters bilaterally and reactive. No photophobia. NECK:No JVD. No stridor. CARDIOVASCULAR: Regular rate about 95. Regular rhythm. No notable murmur. No JVD. RESPIRATORY: No respiratory distress. Breathing is unlabored. No wheezes. No rhonchi. No rales. No pain with a deep breath. No chest wall tenderness. GASTROINTESTINAL: Not distended. Bowel sounds are normal. No tenderness. No guarding. No rebound. No palpable mass. No bruit is heard. GENITOURINARY: No tenderness over the bladder. No CVA tenderness. MUSCULOSKELETAL: Atraumatic. No peripheral edema. No cord. No tenderness along the deep venous system. No asymmetry. No distended veins. NEUROLOGICAL: Patient is alert and appropriate. No focal deficit noted. SKIN: No noted rashes. No diaphoresis. PSYCHIATRIC: Patient is calm. Mood is appropriate. Const Vital Signs: 12/11/22 16:09 12/11/22 16:18 12/11/22 17:23 Temperature 96.8 F L Temperature Source Temporal Pulse Rate 90 84 Respiratory Rate 18 18 18 Blood Pressure 125/78 H 122/59 H Blood Pressure Mean 93 80 Pulse Ox 100 100 Oxygen Delivery Method Room Air Room Air Room Air 12/11/22 19:14 12/11/22 19:43 12/11/22 19:52 Temperature 100.0 F H Temperature Source Oral Pulse Rate 80 94 96 Respiratory Rate 18 18 18 Blood Pressure 108/55 L 115/39 L 119/61 Blood Pressure Mean 72 64 80 Pulse Ox 98 99 99 Oxygen Delivery Method Room Air Room Air Room Air MDM MDM MDM Narrative Medical decision making narrative: Electrolytes show no marked abnormalities. Minimal decrease calcium. Serum is negative. Patient's COVID is negative. My depend interpretation of the patient's two-view chest x-ray shows no infiltrative process. Patient is checked. She was given IV fluids. She is feeling a little better. We gave her some Toradol. This was for her headache and muscle aches. She states it is better but she still has some headache. She tells me that when she woke up this morning she had just a little bit of a headache but it is slowly worsened. She now tells me that she has had headaches before but they are usually not this bad but she usually does not come in for them but she also does not normally get them when she is sick. I am not sure if these are migraines. I talked with her about some options. She is not having fevers. There is no meningismus. We talked about the options of a lumbar puncture which she really does not want. I think this is reasonable. I did state that we will get her some meds for migraine. We will do a CT scan and patient will be reassessed. My independent interpretation of her CT of the head is negative and final reading is. I rechecked the patient she is feeling a lot better. She has bright lights on in the room. She is smiling. She still has some myalgias and overall does not feel perfectly but she does feel better. We again discussed with her and her mom lumbar puncture. She has a low-grade temperature here at 100.0. But she has had a week of symptoms that include the headache as one of them. The headache really progressed today. But she has no meningismus. She is turning and looking at me in the ceiling while I am in the room. I explained that you can still have headache with viral syndromes. She also has muscle aches she has cough she has nausea. She has no rash. At this point we will hold off on the LP. Lab Data Attestation: I reviewed the patient's lab results. Labs: Laboratory Results - last 24 hr 10/03/23 17:38 Sodium 137 Potassium 4.0 Chloride 107 Carbon Dioxide 23.0 Anion Gap 7 BUN 13 Creatinine 0.86 Estim Creat Clear Calc 84.88 Est GFR (MDRD) Af Amer 106 Est GFR (MDRD) Non-Af 88 BUN/Creatinine Ratio 15.2 Glucose 71 L Calcium 8.0 L Serum , Qual NEGATIVE Radiography Diagnostic Testing: Clinical Impression(s) from Imaging Studies Chest X-Ray 12/11/22 17:01 IMPRESSION: Normal x-ray examination of the chest. Electronically Signed: Jose C Galvan MD at 17:50 EDT , Brain CT 12/11/22 19:25 IMPRESSION: Normal unenhanced CT scan of the brain. Electronically Signed: Jose C Galvan MD at 19:42 EDT , Discharge Plan Triage Chief Complaint: Headache ED Provider: Jack Adame Dx/Rx/DC Orders Clinical Impression: Acute viral syndrome, Cough, Headache Instructions: ED Viral Syndrome (Adult) Prescriptions: New ondansetron [ondansetron] 4 mg tablet,disintegrating 4 mg PO Q8H PRN PRN (Reason: Nausea) Qty: 10 0RF No Action citalopram 20 mg Tablet 20 mg PO DAILY Hold Instructions: Pt has been DC'd oxycodone 5 mg Tablet 5 mg PO Q6H PRN PRN (Reason: Pain Score 7-10) 4 Days Qty: 16 0RF Hold Instructions: Pt has been DC'd Primary Care Provider: Care Physician,No Primary Referrals: Nita Lynn DO [Med Staff - Housekeeping And Laundry Team Leader] - 3-5 Days if not improving Care Physician,No Primary [Primary Care Provider] - Disposition Disposition: Home, Self Care
[2022-12-11] MEDS: Ondansetron 4 MG/2 ML Vial IV (16:55)
[2022-12-11] MEDS: 0.9% Normal Saline (1000mL) 1,000 ML 1000 ML IV (16:55)
--- NOTE | 2022-12-11 17:01 | RAD_ITS ---
STUDY: X-RAY CHEST REASON FOR EXAM: Female, 22 years old. cough TECHNIQUE: Frontal and lateral views of the chest. COMPARISON: None. FINDINGS: The lungs are clear and expanded. There is no demonstrated pleural abnormality. Normal size heart. Normal mediastinum and juan manuel. Normal visualized pulmonary arteries. Normal visualized aortic arch and descending thoracic aorta. Normal visualized thoracic spine. Normal visualized ribs, clavicles, and shoulders. There is no demonstrated abnormality of the visualized soft tissue structures of the upper abdomen. RAD/Chest PA and Lateral IMPRESSION: Normal x-ray examination of the chest. Electronically Signed: Jose C Galvan MD at 17:50 EDT ,
[2022-12-11 18:11] LABS: Internal QC Validated? YES +Cl - CLEAR BKGD; Pregnancy, Serum, hCG Quali. NEGATIVE Negative
[2022-12-11 18:13] LABS: Anion Gap 7 (5-15); BUN 13 mg/dL (7-18); BUN/Creat Ratio 15.2 RATIO (10-20); Chloride 107 mmol/L (98-107); Creatinine, Serum 0.86 mg/dL (0.55-1.02); EST Glomerular Filtration Rate 88 mL/min (>60); Est Glom Filt Rate - Afr Amer 106 mL/min (>60); Estimated Creatinine Clearance 84.88 ml/min; Glucose 71 mg/dL (74-106); Sodium Level 137 mmol/L (136-145)
[2022-12-11] MEDS: Ketorolac 30 MG/ML Syringe 15 MG IV (18:31)
[2022-12-11] MEDS: DiphenhydrAMINE 50 MG/ML Syringe IV (19:01)
[2022-12-11] MEDS: proCHLORPERazine 10 MG/2 ML Vial IV (19:02)
--- NOTE | 2022-12-11 19:25 | CT_ITS ---
STUDY: CT BRAIN WITHOUT CONTRAST REASON FOR EXAM: Female, 22 years old. headache RADIATION DOSAGE (If Supplied By Facility): CTDIvol = ( 44.99 ) mGy, DLP = ( 796.11 ) mGycm TECHNIQUE: Transaxial CT imaging of the brain was performed without administration of intravenous contrast material. Individualized dose optimization techniques were used for this CT. COMPARISON: No relevant priors. FINDINGS: Normal soft tissue structures. Normal calvarium. Normal size ventricles and extra-axial spaces for the patient''s age. Normal white matter tracts of the cerebral hemispheres. Normal basal ganglia and thalami. Normal brainstem. Normal cerebellum. There is no intracranial hemorrhage. There are no findings of an acute ischemic infarction. Normal visualized paranasal sinuses. CT/Brain/Head without Contrast IMPRESSION: Normal unenhanced CT scan of the brain. Electronically Signed: Jose C Galvan MD at 19:42 EDT ,
== END 2022-12-11 20:31 | disposition home or self-care (01) ==
PROVIDERS: Emergency Provider Emergency Medicine; Visit Provider Emergency Medicine
DX: B34.9 Viral infection, unspecified (principal); R05.9 Cough, unspecified; R51.9 Headache, unspecified; F17.200 Nicotine dependence, unspecified, uncomplicated; F32.A Depression, unspecified; F41.9 Anxiety disorder, unspecified; Z79.899 Other long term (current) drug therapy
CPT/HCPCS: 36415; 70450; 71046; 80048; 84703; 87811; 96361; 96374; 96375; 99284; J7030; A4216; J2405

== ENCOUNTER 2023-11-16 19:44 | Emergency (ER) | payer OTHER, MEDICAID, SELFPAY ==
[2023-11-16 19:46] VITALS: BP 142/87; PULSE 88; RESP 18; TEMP 36.3; O2SAT 99; BMI 28.5
--- NOTE | 2023-11-16 20:38 | EDS_ITS ---
HPI HPI - URI History of Present Illness Chief Complaint: Cold Sx Narrative Narrative: 23-year-old female who denies significant past medical history presents with upper respiratory infection type symptoms that she has had for the last 2 days. While she denies any fever, she has had a lot of nasal congestion and sinus pressure with occasional cough and shortness of breath. 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 She states she felt like this when she had COVID 2 years ago. PFSH PFSH Medical History Anxiety Chlamydia Depression MRSA infection Smoker Home Medications ?Medication ?Instructions ?Recorded ?Last Taken ?Type citalopram 20 mg tablet 20 mg PO DAILY anxiety 02/05/22 02/05/22 06:30 History oxycodone 5 mg tablet 5 mg PO Q6H PRN PRN Pain Score 02/07/22 Unknown Rx 7-10 4 days #16 tabs ondansetron 4 mg disintegrating 4 mg PO Q8H PRN PRN Nausea #10 tabs 12/11/22 Unknown Rx tablet Allergy/AdvReac Type Severity Reaction Status Date / Time bee venom protein (honey bee) Allergy Hives Verified 11/16/23 19:45 Surgical History [place] teeth removed Social History Smoking Status: Light Smoker (<10/day) substance use type: does not use EXAM Physical Exam Const Vital Signs: 11/16/23 19:46 11/16/23 20:12 11/16/23 22:04 Temperature 97.3 F L 97.9 F Temperature Source Temporal Pulse Rate 88 74 Respiratory Rate 18 17 Respiratory Effort Normal Respiratory Pattern Normal Blood Pressure 142/87 H 122/80 H Blood Pressure Mean 105 94 Pulse Ox 99 99 Oxygen Delivery Method Room Air MDM MDM MDM Narrative Medical decision making narrative: Smoking cessation was discussed. I feel the patient has more of a URI with nasal congestion. I do not feel that chest x-ray is indicated because her lungs are clear and her pulse ox is 99% on room air without evidence of hypoxia. I do not feel that she has a pneumonia or pneumothorax as she has equal breath sounds bilaterally as well. 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 She was told that she should use universal precautions and not go to work when she is sick, and perform frequent handwashing. She was swabbed for COVID and I reviewed her respiratory swab which she is negative for COVID, influenza, and RSV. At this point in time, she will try [id number] medication such as Mucinex, and/or nasal steroids. I feel she can be discharged safely home with follow-up. Return instructions were reviewed. Disposition is discharged home in stable condition. History & Record Review Discussion w/independent historian: Patient Discharge Plan Triage Chief Complaint: Cold Sx ED Provider: Sea Santiago Dx/Rx/DC Orders Clinical Impression: URI (upper respiratory infection), Nasal congestion Instructions: ED URI, Viral, No Abx (Adult) Prescriptions: No Action citalopram 20 mg Tablet 20 mg PO DAILY oxycodone 5 mg Tablet 5 mg PO Q6H PRN PRN (Reason: Pain Score 7-10) 4 Days Qty: 16 0RF ondansetron [ondansetron] 4 mg tablet,disintegrating 4 mg PO Q8H PRN PRN (Reason: Nausea) Qty: 10 0RF Primary Care Provider: Care Physician,No Primary Referrals: Danilo Kincaid MD [Med Staff - Active Staff] - Care Physician,No Primary [Primary Care Provider] - Activity Restrictions/Additional Instructions: Take [id number] medications like Mucinex, you may want to try nasal steroid such as Flonase as directed. Follow-up with primary care in 1 week if not improving. Return with increased shortness of breath, new or worsening symptoms. Print Language: Macedonian Disposition Disposition: Home, Self Care Discharge Date/Time: 11/16/23 22:04
[2023-11-16 22:04] VITALS: BP 122/80; PULSE 74; RESP 17; TEMP 36.6; O2SAT 99
== END 2023-11-16 22:04 | disposition home or self-care (01) ==
PROVIDERS: Emergency Provider Emergency Medicine; Visit Provider Emergency Medicine
DX: J06.9 Acute upper respiratory infection, unspecified (principal); R09.81 Nasal congestion; F17.200 Nicotine dependence, unspecified, uncomplicated; Z86.16 Personal history of COVID-19
CPT/HCPCS: 87631; 99282